=== PATIENT | male | born 1990 ===

== ENCOUNTER 2018-09-20 14:02 | Emergency (ER) | payer OTHER ==
[2018-09-20 14:22] VITALS: BP 111/72; PULSE 86; RESP 18; TEMP 98.6; O2SAT 100
--- NOTE | 2018-09-20 17:19 | C.PDOC ---
History Of Present Illness 28 y/o male presents to the ER complaining of right eye redness which began in the morning today. Patient states that he does not wear correction. Patient denies having trauma, foreign body in eye, and changes in vision. Chief Complaint (Nursing): Eye Problem History Per: Patient History/Exam Limitations: no limitations Onset/Duration Of Symptoms: Hrs Current Symptoms Are (Timing): Still Present Severity: Moderate Past Medical History Reviewed: Historical Data, Nursing Documentation, Vital Signs Vital Signs: Last Vital Signs Temp 98.6 F 09/20/18 14:20 Pulse 86 09/20/18 14:20 Resp 18 09/20/18 15:45 BP 111/72 09/20/18 14:20 Pulse Ox 100 09/20/18 14:20 - Medical History PMH: No Chronic Diseases Surgical History: No Surg Hx Family History: States: No Known Family Hx - Social History Hx Alcohol Use: Yes Hx Substance Use: No Review Of Systems Except As Marked, All Systems Reviewed And Found Negative. Constitutional: Negative for: Fever, Chills Eyes: Positive for: Redness (right eye redness). Negative for: Vision Change Physical Exam - Physical Exam Appears: Non-toxic, No Acute Distress Skin: Normal Color, Warm, Dry Head: Atraumatic, Normacephalic Eye(s): right: Other (subconjunctival hemmorhage to medial aspect of eye, globe is soft), left: Normal Inspection Nose: Normal Oral Mucosa: Moist Neck: Supple Chest: Symmetrical Neurological/Psych: Oriented x3, Normal Speech ED Course And Treatment O2 Sat by Pulse Oximetry: 100 (RA) Pulse Ox Interpretation: Normal Disposition - Disposition Referrals: [facility], [Non-Staff] - Disposition: HOME/ ROUTINE Disposition Time: 15:15 Condition: GOOD Additional Instructions: YAZAN NATH, thank you for letting us take care of you today. The emergency medical care you received today was directed at your acute symptoms. If you were prescribed any medication, please fill it and take as directed. It may take several days for your symptoms to resolve. Return to the Emergency Department if your symptoms worsen, do not improve, or if you have any other problems. Please contact your doctor or call one of the physicians/clinics you have been referred to that are listed on the Patient Visit Information form that is included in your discharge packet. Bring any paperwork you were given at discharge with you along with any medications you are taking to your follow up visit. Our treatment cannot replace ongoing medical care by a primary care provider outside of the emergency department. Thank you for allowing the [facility] team to be part of your care today. You can apply an ice pack to the area for a short amount of time. Follow up with your primary care doctor in 5-7 days if it has not resolved. Instructions: Subconjunctival Hemorrhage Forms: [employer] (Bulgarian) - Clinical Impression Clinical Impression: Subconjunctival hemorrhage - Scribe Statement The provider has reviewed the documentation as recorded by the [facility] Provider Attestation: All medical record entries made by the Scribe were at my direction and personally dictated by me. I have reviewed the chart and agree that the record accurately reflects my personal performance of the history, physical exam, medical decision making, and the department course for this patient. I have also personally directed, reviewed, and agree with the discharge instructions and disposition.
== END 2018-09-20 15:46 | disposition home or self-care (01) ==
LOC: C.ER 14:02
DX: H11.31 Conjunctival hemorrhage, right eye (principal)